=== PATIENT | male | born 1990 | race Two or more races ===

== ENCOUNTER 2018-05-21 10:30 | Emergency (ER) | payer SELFPAY ==
[~2018-05-21] VITALS: Ht 188 cm; Wt 84.6 kg
[~2018-05-21 10:30] MED LIST: BACITRACIN28.4 GM TP; Colace PO; DEXTROAMP-AMPHE15 MG PO; Maalox, Mylanta PO; NIZORAL 2% CREA15 GM TP; SERTRALINE HCL50 MG PO; Senokot,Sennagen PO; ZANTAC150 MG PO; oxyCODONE PO
[2018-05-21 11:12] LABS: HEMATOCRIT 42.8 % (38.0-50.0); HEMOGLOBIN 14.5 G/DL (12.5-16.6); MCHC 33.9 G/DL (30.0-36.0); MCV 88.6 FL (86-99); PLATELET COUNT 198 K/uL (156-360); RBC DIS.WIDTH-CV 12.7 % (11.8-14.6); RBC DIS.WIDTH-SD 41.7 % (39-53); RED BLOOD COUNT 4.83 M/uL (4.00-5.50)
[2018-05-21 11:20] LABS: ALBUMIN 4.4 g/dL (3.2-4.8); CHLORIDE 103 mEq/L (99-109); POTASSIUM 3.8 mEq/L (3.7-5.4); SODIUM 140 mEq/L (136-147)
[2018-05-21 11:22] LABS: GLUCOSE 105 mg/dL (70-99); TOTAL PROTEIN 7.3 g/dL (6.4-8.3)
[2018-05-21 11:24] LABS: TOTAL BILIRUBIN 0.6 mg/dL (0.0-1.0)
[2018-05-21 11:26] LABS: ALKALINE PHOSPHATASE 81 IU/L (3-129); CREATININE 1.1 mg/dL (0.6-1.3); GFR ESTIMATE (CALCULATED) > 59 mL/min/ (58.99-99999)
[2018-05-21 11:27] LABS: UREA NITROGEN (BUN) 11 mg/dL (9-23)
[2018-05-21 11:28] LABS: AST (GOT) 19 IU/L (2-34)
[2018-05-21 11:29] LABS: ALT (GPT) 25 IU/L (3-49)
[2018-05-21 14:27] LABS: APPEARANCE CLOUDY ((CLEAR)); BILIRUBIN NEGATIVE; BLOOD NEGATIVE; COLOR YELLOW ((YELLOW)); GLUCOSE (STRIP) NEGATIVE; KETONES NEGATIVE; LEUKOCYTES NEGATIVE; NITRITE NEGATIVE; PROTEIN (STRIP) NEGATIVE; SPECIFIC GRAVITY 1.024 (1.000-1.030)
[2018-05-21 14:34] LABS: BACTERIA RARE /HPF; EPITHELIAL CELLS NONE SEEN /HPF; MUCUS 1+ /LPF; RED BLOOD CELLS 0-5 /HPF (0-5); UCUL ADDED? NO; WHITE BLOOD CELLS 0-5 /HPF (0-5)
[2018-05-21] MEDS ORDERED: MOTRIN600 MG PO (15:48)
[2018-05-21 16:19] VITALS: BP 111/65
== END 2018-05-21 16:22 | disposition home or self-care (01) ==
LOC: EME 10:30
DX: R07.89 Other chest pain (principal); I10 Essential (primary) hypertension; F32.9 Major depressive disorder, single episode, unspecified; F90.9 Attention-deficit hyperactivity disorder, unspecified type; F17.200 Nicotine dependence, unspecified, uncomplicated
CPT/HCPCS: 71046; 80053; 81003; 85027; 99281; 99284